=== PATIENT | female | born 1985 | race Caucasian/White ===

== ENCOUNTER 2022-09-16 09:56 | Outpatient (CLI) | payer OTHER | END 2022-09-16 12:22 | disposition home or self-care (01) | LOC: NST 09:56 | PROVIDERS: ATTEND Obstetrics & Gynecology | DX: Z34.83 Encounter for supervision of other normal pregnancy, third trimester (principal) ==

== ENCOUNTER 2022-10-03 14:29 | Outpatient (CLI) | payer OTHER | END 2022-10-03 15:40 | disposition home or self-care (01) | LOC: NST 14:29 | PROVIDERS: ATTEND Obstetrics & Gynecology Maternal & Fetal Medicine | DX: Z34.83 Encounter for supervision of other normal pregnancy, third trimester (principal) ==

== ENCOUNTER 2022-10-21 09:42 | Inpatient (IN) | payer OTHER ==
[~2022-10-21] VITALS: Ht 170.2 cm; Wt 3.2 kg
[2022-10-21] MEDS ORDERED: LABETALOL HCL200 MG PO (10:23)
[2022-10-29] MEDS ORDERED: PRENATAL 19 CH1 EAC1 PO (09:20)
[2022-10-29] MEDS ORDERED: FOLIC ACID0.8 MG PO (09:21)
== END 2022-10-31 12:51 | disposition home or self-care (01) | DRG 788 ==
LOC: OB/GYN → O/R 10-29 07:54 → OB/GYN 10-29 07:54
PROVIDERS: ADMIT Obstetrics & Gynecology Maternal & Fetal Medicine; ATTEND Obstetrics & Gynecology Maternal & Fetal Medicine
PROC: 4A1HXCZ Monitoring of Products of Conception, Cardiac Rate, External Approach (ICD-10-PCS; 2022-10-29)
PROC: 10D00Z1 Extraction of Products of Conception, Low, Open Approach (ICD-10-PCS; principal; 2022-10-29 09:00)
DX: O34.211 Maternal care for low transverse scar from previous cesarean delivery (principal); Z3A.38 38 weeks gestation of pregnancy; Z37.0 Single live birth; Z20.822 Contact with and (suspected) exposure to COVID-19

== ENCOUNTER 2022-10-21 10:50 | Outpatient (CLI) | payer OTHER ==
[~2022-10-21 10:50] MED LIST: LABETALOL HCL200 MG PO
== END 2022-10-21 10:53 | disposition home or self-care (01) ==
LOC: NST 10:50
PROVIDERS: ATTEND Obstetrics & Gynecology Maternal & Fetal Medicine
DX: Z34.83 Encounter for supervision of other normal pregnancy, third trimester (principal)

== ENCOUNTER 2022-10-27 10:23 | Outpatient (CLI) | payer OTHER | END 2022-10-27 11:05 | disposition home or self-care (01) | LOC: NST 10:23 | PROVIDERS: ATTEND Obstetrics & Gynecology Gynecology | DX: Z34.83 Encounter for supervision of other normal pregnancy, third trimester (principal) ==

== ENCOUNTER 2022-10-27 14:49 | Outpatient (CLI) | payer OTHER | END 2022-10-27 15:09 | disposition home or self-care (01) | LOC: LAB 14:49 | PROVIDERS: ATTEND Obstetrics & Gynecology Gynecology | DX: Z20.822 Contact with and (suspected) exposure to COVID-19 (principal) ==